=== PATIENT | male | born 1970 | race Two or more races ===

== ENCOUNTER 2018-11-28 06:55 | Emergency (ER) | payer OTHER ==
[2018-11-28 07:26] VITALS: TEMP 98.2; BMI 42.7
[2018-11-28] MEDS ORDERED: KETOROLAC TROMETHAMINE 30 MG/1 ML VIAL IVPUSH ONE (07:30)
[2018-11-28] MEDS ORDERED: SODIUM CHLORIDE 1,000 ML IV STA ×2 (07:30→13:13)
[2018-11-28] MEDS ORDERED: KETOROLAC TROMETHAMINE 30 MG/1 ML VIAL ONE (07:41)
--- NOTE | 2018-11-28 07:42 | PDOC ---
History of Present Illness - General Chief Complaint: Pain, Acute Stated Complaint: PAIN Time Seen by Provider: 11/28/18 07:29 History Source: Patient Exam Limitations: No Limitations - History of Present Illness Travel History: No Initial Comments: 11/28/18 07:39 48-year-old male presents to ED with complaints of left flank pain since yesterday upon awakening. Patient states pain is worsened with movement and urination but denies dysuria or hematuria. Patient denies change in bowel pattern, fever, chills, nausea, radiation of pain to his testicles, or recent injury. 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 Timing/Duration: reports: constant Quality: reports: moderate, sharpness Abdominal Pain Onset Location: reports: flank Pain Radiation: reports: LLQ Activities at Onset: reports: none Aggravating Factors: improves with: Movement, Voiding Alleviating Factors: improves with: None Past History - Travel Traveled outside of the country in the last 30 days: No Close contact w/someone who was outside of country & ill: No - Past Medical History Allergies/Adverse Reactions: Allergies Allergy/AdvReac Type Severity Reaction Status Date / Time No Known Allergies Allergy Verified 01/26/17 10:31 Home Medications: Ambulatory Orders Aspirin [ASA -] 81 mg PO DAILY 02/20/14 Lisinopril [Prinivil -] 40 mg PO DAILY 02/20/14 Tamsulosin HCl [Flomax -] 0.4 mg PO DAILY #7 cap.er.24h 04/28/14 Oxycodone HCl/Acetaminophen [Percocet 5-325 mg Tablet] 1 - 2 tab PO Q6H PRN #10 tablet 04/29/14 Cyclobenzaprine HCl [Flexeril 10 mg] 5 mg PO TID PRN #15 tablet 01/26/17 Tamsulosin HCl [Flomax] 0.4 mg PO DAILY #7 cap.er.24h 11/28/18 Tamsulosin HCl [Flomax] 0.4 mg PO DAILY #7 cap.er.24h 11/28/18 Tramadol HCl 50 mg PO BID #14 tablet MDD 2 11/28/18 Tramadol HCl 50 mg PO BID PRN #14 tablet MDD 2 11/28/18 COPD: No HTN: Yes - Surgical History Appendectomy: Yes - Immunization History Immunization Up to Date: No - Suicide/Smoking/Psychosocial Hx Smoking History: Never smoked Have you smoked in the past 12 months: No Information on smoking cessation initiated: No Hx Alcohol Use: No Drug/Substance Use Hx: No Substance Use Type: None Patient Lives Alone: No Lives with/in: spouse/SO Review of Systems - Review of Systems Able to Perform ROS?: No Is the patient limited Mohawk proficient: No Constitutional: No: Symptoms Reported HEENTM: No: Symptoms Reported Respiratory: No: Symptoms reported Cardiac (ROS): No: Symptoms Reported ABD/GI: Yes: Abdominal cramping : Yes: Flank Pain Musculoskeletal: No: Symptoms Reported Integumentary: No: Symptoms Reported Neurological: No: Symptoms reported Endocrine: No: Symptoms Reported Hematologic/Lymphatic: No: Symptoms Reported *Physical Exam - Vital Signs Last Vital Signs Temp Pulse Resp BP Pulse Ox 98.2 F 79 18 151/102 H 100 11/28/18 07:23 11/28/18 07:23 11/28/18 07:23 11/28/18 07:23 11/28/18 07:23 - Physical Exam General Appearance: Yes: Nourished, Appropriately Dressed. No: Apparent Distress HEENT: negative: Pale Conjunctivae Neck: positive: Supple Respiratory/Chest: positive: Lungs Clear, Normal Breath Sounds. negative: Respiratory Distress, Accessory Muscle Use Cardiovascular: positive: Regular Rhythm, Regular Rate. negative: Murmur Gastrointestinal/Abdominal: positive: Normal Bowel Sounds, Soft, Tenderness ( left flank left lower quadrant). negative: Distended, Guarding Musculoskeletal: positive: CVA Tenderness (L) (mild to none) Integumentary: positive: Normal Color, Warm, Moist. negative: Rash Neurologic: positive: Motor Strength 5/5 (ambulatory) ED Treatment Course - LABORATORY CBC & Chemistry Diagram: 11/28/18 07:40 11/28/18 07:40 Medical Decision Making - Medical Decision Making 11/28/18 07:43 Chief complaint: Left flank pain radiating to the left lower quadrant and mild left back pain since yesterday worsened with movement and urination patient with history of renal colic and low back pain Exam: Obese patient vital signs stable with deep palpation patient with left flank left lower quadrant and minimal left CVA tenderness Plan: Labs, urine, Toradol IV fluids and will reevaluate 11/28/18 11:39 Laboratory Tests 11/28/18 10:30 Urine Glucose (UA) Negative Urine Ketones Negative Urine Blood Negative Urine Nitrite Negative Urine Bilirubin Negative Ur Leukocyte Esterase Negative 11/28/18 11:39 Laboratory Tests 11/28/18 11/28/18 07:40 07:40 WBC 9.3 Hgb 14.7 Hct 44.1 Absolute Neuts (auto) 6.2 Sodium 143 Potassium 4.6 Chloride 109 H Carbon Dioxide 28 Anion Gap 6 L BUN 20 H Creatinine 1.2 Random Glucose 94 Calcium 8.7 Total Bilirubin 0.2 AST 31 ALT 61 Alkaline Phosphatase 114 Total Protein 7.0 Albumin 3.5 Pt continues with discomfort. Pt ordered for abd/pelvic ct 11/28/18 13:11 CT shows a 6 mm proximal left ureteral calculus with [id number] hydronephrosis. 11/28/18 13:19 . Patient be given a dose of Flomax with a second liter of IV fluids. Consult to Dr. Sanchez placed 11/28/18 14:[address] Huston and states patient may follow-up in the office. Patient will be given a strainer upon discharge including a prescription for tramadol and Flomax. *DC/Admit/Observation/Transfer Diagnosis at time of Disposition: Renal colic on left side - Discharge Dispostion Disposition: HOME Condition at time of disposition: Improved - Prescriptions Prescriptions: Tamsulosin HCl [Flomax] 0.4 mg PO DAILY #7 cap.er.24h Tamsulosin HCl [Flomax] 0.4 mg PO DAILY #7 cap.er.24h Tramadol HCl 50 mg PO BID #14 tablet MDD 2 Tramadol HCl 50 mg PO BID PRN #14 tablet MDD 2 PRN Reason: Pain - Referrals Referrals: Kenny Nolasco MD [Staff Physician] - - Patient Instructions Printed Discharge Instructions: Kidney Stones -- Adult Additional Instructions: Please drink at least 2 liters of water on a daily basis and avoid caffeine intake. Take medication for pain and medication to increase your urine flow. Please also follow up with referred urologist whom I spoke with today and is aware of today's visit - Post Discharge Activity
[2018-11-28 08:18] LABS: BASO % 0.6 % (0-2.0); EOS % 2.8 % (0-4.5); HEMATOCRIT 44.1 % (35.4-49); HEMOGLOBIN 14.7 GM/dL (11.7-16.9); MCH 31.9 pg (25.7-33.7); MCHC 33.4 g/dl (32.0-35.9); MEAN CELL VOLUME 95.4 fl (80-96); MEAN PLT VOLUME 8.9 fl (7.5-11.1); NEUT % 66.6 % (42.8-82.8); PLATELET COUNT 343 K/MM3 (134-434); RBC 4.62 M/mm3 (4.00-5.60); RDW 13.4 % (11.9-15.9); WHITE BLOOD COUNT 9.3 K/mm3 (4.0-10.0)
[2018-11-28 08:49] LABS: ALBUMIN 3.5 g/dl (3.4-5.0); ALK PHOS 114 U/L (45-117); ANION GAP 6 MMOL/L (8-16); BILIRUBIN,TOTAL 0.2 mg/dL (0.2-1); BLOOD UREA NITROGEN 20 mg/dL (7-18); CALCIUM 8.7 mg/dL (8.5-10.1); CHLORIDE 109 mmol/L (98-107); CO2 28 mmol/L (21-32); CREATININE 1.2 mg/dL (0.55-1.3); GLUCOSE,RANDOM 94 mg/dL (74-106); POTASSIUM 4.6 mmol/L (3.5-5.1); SGOT/AST 31 U/L (15-37); SGPT/ALT 61 U/L (13-61); SODIUM 143 mmol/L (136-145)
--- NOTE | 2018-11-28 09:19 | PDOC ---
*Physical Exam - Vital Signs Last Vital Signs Temp Pulse Resp BP Pulse Ox 98.2 F 76 20 140/98 98 11/28/18 07:23 11/28/18 08:00 11/28/18 08:00 11/28/18 08:00 11/28/18 08:02 ED Treatment Course - LABORATORY CBC & Chemistry Diagram: 11/28/18 07:40 11/28/18 07:40 - ADDITIONAL ORDERS Additional order review: Laboratory Results 11/28/18 07:40 Sodium 143 Potassium 4.6 Chloride 109 H Carbon Dioxide 28 Anion Gap 6 L BUN 20 H Creatinine 1.2 Creat Clearance w eGFR 64.35 Random Glucose 94 Calcium 8.7 Total Bilirubin 0.2 AST 31 ALT 61 Alkaline Phosphatase 114 Total Protein 7.0 Albumin 3.5 11/28/18 07:40 RBC 4.62 MCV 95.4 MCHC 33.4 RDW 13.4 MPV 8.9 Neutrophils % 66.6 Lymphocytes % 22.0 D Monocytes % 8.0 Eosinophils % 2.8 Basophils % 0.6 - Medications Given in the ED: ED Medications Discontinued Medications Generic Name Dose Route Start Last Admin Trade Name Freq PRN Reason Stop Dose Admin Sodium Chloride 1,000 mls @ 1,000 mls/hr 11/28/18 07:30 11/28/18 07:50 Normal Saline - IV 11/28/18 08:29 1,000 mls/hr ASDIR STA Administration Ketorolac Tromethamine 30 mg 11/28/18 07:30 11/28/18 07:50 Toradol Injection - IVPUSH 11/28/18 07:31 30 mg ONCE ONE Administration Medical Decision Making - Medical Decision Making 11/28/18 09:52 48-year-old male presents to ED with complaints of left flank pain since yesterday No fever, chills, nausea, radiation of pain to his testicles, or recent injury. 11/28/18 09:52 Laboratory Tests 11/28/18 11/28/18 07:40 07:40 WBC 9.3 BUN 20 H Creatinine 1.2 Agree with plan per [facility] CT - 6mm stone with hydronephrosis Laboratory Tests 11/28/18 10:30 Urine Ketones Negative Urine Blood Negative Ur Leukocyte Esterase Negative Case reviewed with Dr Sanchez Will plan to discharge to home 11/29/18 09:30 *DC/Admit/Observation/Transfer Diagnosis at time of Disposition: Renal colic on left side - Discharge Dispostion Disposition: HOME Condition at time of disposition: Improved - Prescriptions Prescriptions: Tamsulosin HCl [Flomax] 0.4 mg PO DAILY #7 cap.er.24h Tramadol HCl 50 mg PO BID PRN #14 tablet MDD 2 PRN Reason: Pain - Referrals Referrals: Kenny Nolasco MD [Staff Physician] - - Patient Instructions Printed Discharge Instructions: Kidney Stones -- Adult Additional Instructions: Please drink at least 2 liters of water on a daily basis and avoid caffeine intake. Take medication for pain and medication to increase your urine flow. Please also follow up with referred urologist whom I spoke with today and is aware of today's visit - Post Discharge Activity
[2018-11-28 11:30] LABS: URINE APPEARANCE CLEAR; URINE BILIRUBIN NEGATIVE (NEGATIVE); URINE COLOR YELLOW; URINE GLUCOSE (UA) NEGATIVE (NEGATIVE); URINE KETONE NEGATIVE (NEGATIVE); URINE LEUK ESTERASE NEGATIVE (NEGATIVE); URINE NITRITE NEGATIVE (NEGATIVE); URINE PROTEIN NEGATIVE (NEGATIVE)
[2018-11-28] MEDS ORDERED: morphine CARPU-JECT 2 MG/1 ML DISP.SYRIN IVPUSH ONE (12:26)
[2018-11-28] MEDS ORDERED: morphine SULFATE 4 MG/ML VIAL ONE (12:40)
[2018-11-28] MEDS ORDERED: TAMSULOSIN HCL 0.4 MG CAP PO ONE (13:13)
[2018-11-28 13:24] VITALS: BP 136/90; PULSE 68
[2018-11-28] MEDS ORDERED: TAMSULOSIN HCL 0.4 MG CAP ONE (13:26)
== END 2018-11-28 14:50 | disposition home or self-care (01) ==
LOC: JER 06:55
PROC: 3E0337Z Introduction of Electrolytic and Water Balance Substance into Peripheral Vein, Percutaneous Approach (ICD-10-PCS; principal; 2018-11-28)
PROC: 3E033NZ Introduction of Analgesics, Hypnotics, Sedatives into Peripheral Vein, Percutaneous Approach (ICD-10-PCS; 2018-11-28)
DX: N20.0 Calculus of kidney (principal)
CPT/HCPCS: 36415; 74176-TC; 80053; 81003; 85025; 87086; 99283-25; J7030

== ENCOUNTER 2019-05-28 10:47 | Emergency (ER) | payer OTHER ==
[2019-05-28 10:53] VITALS: BP 139/83; PULSE 87; TEMP 98.5; BMI 42.7
[2019-05-28] MEDS ORDERED: ONDANSETRON *ODT* 4 MG TABLET SL ONE (11:23)
[2019-05-28] MEDS ORDERED: KETOROLAC TROMETHAMINE 60 MG/2 ML VIAL IM ONE (11:23)
[2019-05-28] MEDS ORDERED: KETOROLAC TROMETHAMINE 60 MG/2 ML VIAL ONE (11:25)
[2019-05-28] MEDS ORDERED: ONDANSETRON *ODT* 4 MG TABLET ONE (11:26)
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
== END 2019-05-28 13:14 | disposition home or self-care (01) ==
LOC: JERFT 10:47
PROC: 3E0233Z Introduction of Anti-inflammatory into Muscle, Percutaneous Approach (ICD-10-PCS; principal; 2019-05-28)
DX: Z04.1 Encounter for examination and observation following transport accident (principal); V43.52XA Car driver injured in collision with other type car in traffic accident, initial encounter; Y93.89 Activity, other specified; Y92.410 Unspecified street and highway as the place of occurrence of the external cause; I10 Essential (primary) hypertension
CPT/HCPCS: 72040-TC; 99282-25

== ENCOUNTER 2021-12-04 10:55 | Emergency (ER) | payer OTHER ==
[2021-12-04 11:04] VITALS: BP 147/96; PULSE 69; TEMP 98; BMI 32.9
[2021-12-04] MEDS ORDERED: ACETAMINOPHEN 1000 MG/100 ML BAG IVPB ONE (12:01)
[2021-12-04] MEDS ORDERED: SODIUM CHLORIDE 0.9% 500 ML INFUS.BAG IV ONE (12:01)
[2021-12-04] MEDS ORDERED: ACETAMINOPHEN INJECTION 100 ML IVPB ONE (12:14)
[2021-12-04 12:21] LABS: BASO % 0.8 % (0-2.0); EOS % 0.8 % (0-4.5); HEMATOCRIT 48.9 % (35.4-49); HEMOGLOBIN 16.5 GM/dL (11.7-16.9); LYMPH % 11.1 % (8-40); MCH 32.1 pg (25.7-33.7); MCHC 33.8 g/dl (32.0-35.9); MEAN PLT VOLUME 8.8 fl (7.5-11.1); MONO % 3.9 % (3.8-10.2); NEUT % 83.4 % (42.8-82.8); PLATELET COUNT 290 10^3/uL (134-434); RBC 5.14 M/mm3 (4.00-5.60); WHITE BLOOD COUNT 11.2 K/mm3 (4.0-10.0)
[2021-12-04 12:22] LABS: EPI CELLS 2 /uL (0-25.1); HYALINE CASTS 1 /uL (0-3.1); PH,URINE 5.5 (5.0-8.0); URINE APPEARANCE CLOUDY; URINE BACTERIA 4 /uL (0-1359); URINE BILIRUBIN NEGATIVE (NEGATIVE); URINE COLOR YELLOW; URINE GLUCOSE (UA) NEGATIVE (NEGATIVE); URINE KETONE TRACE (NEGATIVE); URINE LEUK ESTERASE TRACE (NEGATIVE); URINE NITRITE NEGATIVE (NEGATIVE); URINE PROTEIN 1+ (NEGATIVE); URINE RBC 2116 /uL (0-23.9); URINE WBC 49 /uL (0-25.8)
[2021-12-04 12:39] LABS: ALBUMIN 4.2 g/dl (3.4-5.0); BLOOD UREA NITROGEN 19.9 mg/dL (7-18); CALCIUM 9.3 mg/dL (8.5-10.1)
[2021-12-04 12:42] LABS: CREATININE 1.4 mg/dL (0.55-1.3)
[2021-12-04 12:43] LABS: TOT PROT 7.9 g/dl (6.4-8.2)
[2021-12-04 12:44] LABS: BILIRUBIN,TOTAL 0.6 mg/dL (0.2-1)
[2021-12-04 12:57] LABS: ANISOCYTOSIS 1+; MACROCYTOSIS 0
[2021-12-04] MEDS ORDERED: ONDANSETRON 4 MG/2 ML VIAL IVPUSH ONE (14:12)
[2021-12-04] MEDS ORDERED: ONDANSETRON 4 MG/2 ML VIAL ONE (14:13)
[2021-12-04] MEDS ORDERED: TAMSULOSIN HCL 0.4 MG CAP PO ONE (15:00)
[2021-12-04] MEDS ORDERED: TAMSULOSIN HCL 0.4 MG CAP ONE (16:04)
== END 2021-12-04 16:18 | disposition home or self-care (01) ==
LOC: JERFT 10:55 → JER 10:55 → JERFT 16:18
PROC: 3E033GC Introduction of Other Therapeutic Substance into Peripheral Vein, Percutaneous Approach (ICD-10-PCS; principal; 2021-12-04)
DX: N20.0 Calculus of kidney (principal)
CPT/HCPCS: 36415; 74176-TC; 80053; 81003; 85025; 87086; 99285-25

== ENCOUNTER 2022-05-17 17:48 | Observation (INO) | payer OTHER ==
[2022-05-17 17:56] VITALS: RESP 18; BMI 31.9
[2022-05-17] MEDS ORDERED: MECLIZINE HCL 25 MG TABLET (FP) PO ONE (18:01)
[2022-05-17] MEDS ORDERED: LACTATED RINGERS SOLUTION 1000 ML INFUS.BAG IV ONE ×2 (18:09)
[2022-05-17] MEDS ORDERED: METOCLOPRAMIDE HCL INJECTION 10 MG/2 ML VIAL IVPB ONE (18:09)
[2022-05-17] MEDS ORDERED: METOCLOPRAMIDE HCL INJECTION 10 MG/2 ML VIAL IVPUSH ONE (18:09)
[2022-05-17] MEDS ORDERED: SODIUM CHLORIDE 0.9% 500 ML INFUS.BAG IV ONE (18:36)
[2022-05-17] MEDS ORDERED: diazePAM CARPU-JECT 10 MG/2 ML DISP.SYRIN IVPUSH ONE (19:03)
[2022-05-17 19:07] LABS: BASO % 0.8 % (0-2.0); EOS % 3.9 % (0-4.5); HEMOGLOBIN 14.6 GM/dL (11.7-16.9); LYMPH % 30.2 % (8-40); MCH 32.7 pg (25.7-33.7); MEAN CELL VOLUME 96.4 fl (80-96); MEAN PLT VOLUME 8.9 fl (7.5-11.1); MONO % 8.6 % (3.8-10.2); NEUT % 56.5 % (42.8-82.8); PLATELET COUNT 281 10^3/uL (134-434); RBC 4.46 M/mm3 (4.00-5.60); RDW 12.5 % (11.9-15.9)
[2022-05-17 19:27] LABS: CALCIUM 9.1 mg/dL (8.5-10.1)
[2022-05-17 19:28] LABS: ALBUMIN 3.6 g/dl (3.4-5.0); BLOOD UREA NITROGEN 20.4 mg/dL (7-18)
[2022-05-17] MEDS ORDERED: ONDANSETRON 4 MG/2 ML VIAL IVPUSH ONE (19:28)
[2022-05-17] MEDS ORDERED: KCL 10 MEQ IVPB 10 MEQ/100 ML INFUS.BAG IVPB SCH (19:30)
[2022-05-17 19:31] LABS: CREATININE 1.2 mg/dL (0.55-1.3)
[2022-05-17 19:33] LABS: BILIRUBIN,TOTAL 0.3 mg/dL (0.2-1)
[2022-05-17] MEDS ORDERED: diazePAM CARPU-JECT 10 MG/2 ML DISP.SYRIN ONE (19:41)
[2022-05-17] MEDS ORDERED: ONDANSETRON 4 MG/2 ML VIAL ONE (19:42)
[2022-05-17] MEDS ORDERED: KCL 10 MEQ IVPB 10 MEQ/100 ML INFUS.BAG IVPB ONE (19:42)
[2022-05-17 21:26] LABS: CALCIUM 8.8 mg/dL (8.5-10.1)
[2022-05-17 21:27] LABS: BLOOD UREA NITROGEN 18.3 mg/dL (7-18)
[2022-05-17] MEDS ORDERED: ACETAMINOPHEN 1000 MG/100 ML BAG IVPB ONE (21:29)
[2022-05-17 21:30] LABS: CREATININE 1.1 mg/dL (0.55-1.3)
[2022-05-17] MEDS ORDERED: ACETAMINOPHEN INJECTION 100 ML IVPB ONE (21:37)
[2022-05-17] MEDS ORDERED: POTASSIUM CHLORIDE 20 MEQ PREMIX IVPB 100 ML IVPB ONE (23:51)
[2022-05-18] MEDS: MECLIZINE HCL 25 MG TABLET (FP) PO SCH ×2 (00:46→06:24)
[2022-05-18] MEDS ORDERED: KCL 10 MEQ IVPB 10 MEQ/100 ML INFUS.BAG IVPB ONE (00:48)
[2022-05-18] MEDS ORDERED: KCL 10 MEQ IVPB 10 MEQ/100 ML INFUS.BAG IVPB SCH (01:00)
[2022-05-18] MEDS: KCL 10 MEQ IVPB 10 MEQ/100 ML INFUS.BAG IVPB SCH ×3 (01:40→04:07)
[2022-05-18] MEDS: INSULIN SLIDING SCALE (NOVOLOG) 1 VIAL SQ SCH ×2 (06:32→11:15)
[2022-05-18 07:34] LABS: BASO % 0.2 % (0-2.0); EOS % 0.4 % (0-4.5); HEMATOCRIT 41.8 % (35.4-49); HEMOGLOBIN 14.1 GM/dL (11.7-16.9); LYMPH % 17.3 % (8-40); MCH 32.2 pg (25.7-33.7); MCHC 33.8 g/dl (32.0-35.9); MEAN CELL VOLUME 95.4 fl (80-96); MEAN PLT VOLUME 9.2 fl (7.5-11.1); MONO % 5.9 % (3.8-10.2); NEUT % 76.2 % (42.8-82.8); PLATELET COUNT 269 10^3/uL (134-434); RBC 4.38 M/mm3 (4.00-5.60); RDW 12.4 % (11.9-15.9); WHITE BLOOD COUNT 10.7 K/mm3 (4.0-10.0)
[2022-05-18] MEDS: ENOXAPARIN NA (PORCINE) 40 MG/0.4 ML DISP.SYRIN SQ SCH ×2 (07:45→10:18)
[2022-05-18 08:15] LABS: CHOLESTEROL 206 mg/dL (50-200)
[2022-05-18 08:16] LABS: TRIGLYCERIDES 99 mg/dL (0-150)
[2022-05-18 08:17] LABS: LDL CHOLESTEROL (ONLY SJRH) 116 mg/dL (5-100)
[2022-05-18 08:19] LABS: ALBUMIN 3.4 g/dl (3.4-5.0); BLOOD UREA NITROGEN 11.1 mg/dL (7-18); CALCIUM 8.6 mg/dL (8.5-10.1); HDL CHOLESTEROL 71 mg/dL (40-60); MAGNESIUM 1.8 mg/dL (1.8-2.4)
[2022-05-18 08:22] LABS: CREATININE 0.8 mg/dL (0.55-1.3); PHOSPHOROUS 2.9 mg/dL (2.5-4.9)
[2022-05-18 08:24] LABS: BILIRUBIN,TOTAL 0.4 mg/dL (0.2-1); TOT PROT 6.4 g/dl (6.4-8.2)
[2022-05-18] MEDS ORDERED: POTASSIUM CHLORIDE TABS 20 MEQ TABLET.ER (FP) PO ONE (09:07)
[2022-05-18] MEDS ORDERED: CHLORTHALIDONE 25 MG TABLET PO SCH (10:00)
[2022-05-18 11:19] VITALS: BP 128/84; PULSE 67; TEMP 98.4
[2022-05-18] MEDS ORDERED: amLODIPine BESYLATE 10 MG TABLET (FP) PO SCH (14:00)
== END 2022-05-18 12:25 | disposition home or self-care (01) ==
LOC: JER 17:48 → JERBED 21:48 → J4W 05-18 02:16
PROVIDERS: ADMIT Internal Medicine; ATTEND Internal Medicine
PROC: 3E033NZ Introduction of Analgesics, Hypnotics, Sedatives into Peripheral Vein, Percutaneous Approach (ICD-10-PCS; principal; 2022-05-17)
PROC: 3E023GC Introduction of Other Therapeutic Substance into Muscle, Percutaneous Approach (ICD-10-PCS; 2022-05-17)
PROC: 3E0337Z Introduction of Electrolytic and Water Balance Substance into Peripheral Vein, Percutaneous Approach (ICD-10-PCS; 2022-05-17)
PROC: 3E033GC Introduction of Other Therapeutic Substance into Peripheral Vein, Percutaneous Approach (ICD-10-PCS; 2022-05-17)
DX: R42 Dizziness and giddiness (principal); Z98.84 Bariatric surgery status; N20.0 Calculus of kidney; N28.89 Other specified disorders of kidney and ureter; Z29.8 Encounter for other specified prophylactic measures; Z88.5 Allergy status to narcotic agent
CPT/HCPCS: 36415; 70450-TC; 71045-TC-FY; 80048; 80053; 80061; 82962; 83036; 83735; 84100; 84443; 84484; 85025; 93005; 93010; 96365; 96366; 96372; 96375; 99285-25; C9803-CS; G0378; U0003; U0005